=== PATIENT | male | born 1995 | race African-American/Black ===

== ENCOUNTER 2021-10-10 19:53 | Emergency (ER) | payer SELFPAY ==
[~2021-10-10] VITALS: Ht 182.9 cm; Wt 78.9 kg
[2021-10-10 22:55] VITALS: BP 140/87
[2021-10-11] MEDS ORDERED: DexAMETHasone SOD PHOS 10MG/1ML VIAL INJ IM ONE (00:30)
[2021-10-11] MEDS ORDERED: PENICILLIN G BENZ 1200000 UNITS/2 ML SYRG IM ONE (00:30)
== END 2021-10-11 02:06 | disposition home or self-care (01) ==
LOC: ER 19:56
DX: J02.9 Acute pharyngitis, unspecified (principal); Z91.018 Allergy to other foods
CPT/HCPCS: 71045; 96372; 99284; J0561; J1100